=== PATIENT | male | born 1970 ===

== ENCOUNTER 2025-05-23 07:00 | Day surgery (SDC) | payer OTHER ==
[2025-05-23] MEDS ORDERED: MIDAZOLAM HCL 2 MG/2 ML VIAL IV ONE (09:45)
[2025-05-23] MEDS ORDERED: fentaNYL CITRATE 50 MCG/ML AMPUL IV PUSH ONE (09:45)
== END 2025-05-23 10:55 | disposition home or self-care (01) ==
LOC: CIR.AMB 07:00
PROVIDERS: ATTEND Internal Medicine
DX: K63.5 Polyp of colon (principal); K57.30 Diverticulosis of large intestine without perforation or abscess without bleeding; R19.5 Other fecal abnormalities; Z88.8 Allergy status to other drugs, medicaments and biological substances